=== PATIENT | male | born 1985 | race Caucasian/White ===

== ENCOUNTER 2017-04-16 23:25 | Emergency (ER) | payer OTHER ==
[~2017-04-16] VITALS: Ht 182.9 cm; Wt 120.0 kg
[~2017-04-16 23:25] MED LIST: DICL75TA PO; ROBA750T PO
[2017-04-16 23:28] VITALS: BP 141/107; PULSE 75; RESP 14; TEMP 99.1; O2SAT 97
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
== END 2017-04-17 02:09 | disposition home or self-care (01) ==
LOC: NEPC 23:25
DX: S61.230A Puncture wound without foreign body of right index finger without damage to nail, initial encounter (principal); W26.8XXA Contact with other sharp object(s), not elsewhere classified, initial encounter; Y93.F9 Activity, other caregiving; Y92.238 Other place in hospital as the place of occurrence of the external cause; Y99.0 Civilian activity done for income or pay
CPT/HCPCS: 80074; 86703; 99283

== ENCOUNTER 2017-05-12 05:05 | Emergency (ER) | payer OTHER ==
[2017-05-12 05:07] VITALS: BP 159/103; PULSE 104; RESP 15; TEMP 99.5; O2SAT 97
[2017-05-12] MEDS ORDERED: METHOCARBAMOL 500 MG TAB PO ONE (05:30)
[2017-05-12] MEDS ORDERED: IBUPROFEN 800 MG TAB PO ONE (05:30)
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
== END 2017-05-12 05:50 | disposition home or self-care (01) ==
LOC: NEPD 05:05
DX: S46.912A Strain of unspecified muscle, fascia and tendon at shoulder and upper arm level, left arm, initial encounter (principal); W51.XXXA Accidental striking against or bumped into by another person, initial encounter; Y99.0 Civilian activity done for income or pay; Z79.899 Other long term (current) drug therapy
CPT/HCPCS: 99283

== ENCOUNTER 2017-05-15 17:37 | Emergency (ER) | payer OTHER ==
[~2017-05-15] VITALS: Ht 182.9 cm; Wt 121.0 kg
[2017-05-15 17:40] VITALS: BP 164/101; PULSE 84; RESP 15; TEMP 98.3; O2SAT 99
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
[2017-05-15] MEDS ORDERED: ZANA2CAP PO (19:05)
[2017-05-15 19:39] VITALS: BP 141/63; TEMP 98.3
== END 2017-05-15 19:42 | disposition home or self-care (01) ==
LOC: NEPD 17:37
DX: M25.512 Pain in left shoulder (principal)
CPT/HCPCS: 73030; 99283

== ENCOUNTER 2018-01-28 01:12 | Emergency (ER) | payer OTHER ==
[~2018-01-28 01:12] MED LIST changes: +ZANA2CAP PO
[2018-01-28] MEDS ORDERED: MUPI2OIN TOPICAL (01:23)
[2018-01-28] MEDS ORDERED: CEPH-460 PO (01:23)
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
[2018-01-28 01:42] VITALS: BP 128/68; PULSE 82; RESP 20; TEMP 98.2; O2SAT 98
== END 2018-01-28 01:58 | disposition home or self-care (01) ==
LOC: NED 01:12 → NEPD 01:58
DX: S50.811A Abrasion of right forearm, initial encounter (principal); W50.4XXA Accidental scratch by another person, initial encounter; Y93.F9 Activity, other caregiving
CPT/HCPCS: 99283